=== PATIENT | male | born 1970 | race Caucasian/White ===

== ENCOUNTER 2021-10-30 13:55 | Outpatient (CLI) | payer BC, SELFPAY ==
[2021-10-30 19:22] LABS: Albumin* 4.6 g/dL (3.3-5.0); Chloride* 105 mmol/L (96-114)
[2021-10-30 19:23] LABS: Potassium* 3.9 mmol/L (3.6-5.1); Sodium* 141 mmol/L (135-149)
[2021-10-30 19:25] LABS: Bilirubin Total* 0.7 mg/dL (0.1-1.5); Carbon Dioxide* 23 mmol/L (20-32); Cholesterol* 172 mg/dL (90-199); Creatinine* 0.6 mg/dL (0.5-1.5); Estimated Glomerular Filt Rate 118.34; Total Protein* 6.6 g/dL (6.0-8.3)
[2021-10-30 19:26] LABS: Alanine Aminotransferase* 58 U/L (4-50); Alkaline Phosphatase* 76 U/L (40-150); Aspartate Amino Transferase* 42 U/L (12-35); Blood Urea Nitrogen* 14 mg/dL (5-24); Calcium* 9.6 mg/dL (8.4-10.6); Glucose* 168 mg/dL (60-115); Triglycerides* 396 mg/dL (40-149)
[2021-10-30 19:27] LABS: HDL Cholesterol* 43 mg/dL (>=40); LDL Cholesterol Calculated 50 mg/dL (<100)
== END 2021-10-30 13:56 | disposition home or self-care (01) ==
PROVIDERS: PCP Family Medicine; Visit Provider Family Medicine
DX: Z00.00 Encounter for general adult medical examination without abnormal findings (principal); E66.9 Obesity, unspecified; E13.9 Other specified diabetes mellitus without complications; E78.5 Hyperlipidemia, unspecified; F32.A Depression, unspecified; K76.0 Fatty (change of) liver, not elsewhere classified; G89.29 Other chronic pain
CPT/HCPCS: 80053; 80061

== ENCOUNTER 2023-04-10 09:34 | Outpatient (CLI) | payer BC, SELFPAY | END 2023-04-10 09:35 | disposition home or self-care (01) | PROVIDERS: PCP Family Medicine; Visit Provider Family Medicine | DX: E78.2 Mixed hyperlipidemia (principal); E13.9 Other specified diabetes mellitus without complications; Z12.5 Encounter for screening for malignant neoplasm of prostate | CPT/HCPCS: 80048; 80061; 84153 ==

== ENCOUNTER 2025-04-28 09:20 | Outpatient (CLI) | payer BC, SELFPAY | END 2025-04-28 09:21 | disposition home or self-care (01) | LOC: LKVREF 09:22 | PROVIDERS: PCP Family Medicine; Visit Provider Family Medicine | DX: E11.9 Type 2 diabetes mellitus without complications (principal) | CPT/HCPCS: 84681 ==